=== PATIENT | female | born 1950 ===

== ENCOUNTER 2016-09-22 09:38 | Day surgery (SDC) | payer MEDICARE, BC ==
[2016-09-13 14:09] VITALS: BMI 33.8
[2016-09-22] MEDS ORDERED: Propofol 10 mg/ml Inj (20 ML) ONE (11:10)
[2016-09-22] MEDS ORDERED: Lidocaine 2% Inj (20ml) ONE (11:11)
[2016-09-22 13:52] VITALS: BP 125/90; PULSE 69; RESP 18; TEMP 97.8; O2SAT 99
== END 2016-09-22 13:46 | disposition home or self-care (01) ==
LOC: ENDO 09:38
PROVIDERS: ATTEND Internal Medicine Gastroenterology
DX: D12.5 Benign neoplasm of sigmoid colon (principal); K29.50 Unspecified chronic gastritis without bleeding; K21.9 Gastro-esophageal reflux disease without esophagitis; K64.8 Other hemorrhoids; K59.00 Constipation, unspecified; I10 Essential (primary) hypertension; E11.9 Type 2 diabetes mellitus without complications; Z79.84 Long term (current) use of oral hypoglycemic drugs; E78.5 Hyperlipidemia, unspecified; F03.90 Unspecified dementia, unspecified severity, without behavioral disturbance, psychotic disturbance, mood disturbance, and anxiety
CPT/HCPCS: 43239; 45380; 82948; 88305; 88312; 88342; J2704; J7040